=== PATIENT | female | born 1995 | race Caucasian/White ===

== ENCOUNTER 2017-06-17 07:42 | Emergency (ER) | payer OTHER ==
[~2017-06-17] VITALS: Ht 177.8 cm; Wt 81.7 kg
[2017-06-17] MEDS ORDERED: MONO-LINYAH1 EACH PO (07:58)
[2017-06-17] MEDS ORDERED: PHENERGAN25 MG PR (09:23)
[2017-06-17] MEDS ORDERED: ZOFRAN ODT4 MG PO (09:23)
== END 2017-06-17 10:06 | disposition home or self-care (01) ==
LOC: ED 07:42
DX: R11.2 Nausea with vomiting, unspecified (principal); Z88.1 Allergy status to other antibiotic agents; Z79.899 Other long term (current) drug therapy
CPT/HCPCS: 80053; 81001; 83690; 84703; 85025; 96374; 96375; 99283; J2405; J2550; J7030